=== PATIENT | female | born 1975 | race Caucasian/White ===

== ENCOUNTER → 2020-07-07 13:20 | Outpatient (CLI) | payer OTHER, SELFPAY ==
--- NOTE | ~2020-07-07 | MM_ITS ---
EXAMINATION: MM screening [facility] BI w ulysses HISTORY: Screening mammogram TECHNIQUE: Craniocaudal and mediolateral oblique 3-D tomosynthesis images were obtained and synthetic 2-D images were generated. CAD analysis was submitted and interpreted. COMPARISON: 07/23/2018 bilateral digital screening mammogram 04/30/2019 bilateral diagnostic digital mammogram and limited right breast ultrasound Outside mammogram images dated 07/10/2017 at 06/08/2016 BREAST PARENCHYMAL COMPOSITION: The breasts are heterogeneously dense, which may obscure small masses . FINDINGS: There is no evidence of suspicious mass, calcification, or architectural distortion to sugg est malignancy in either breast. There has been no suspicious interval change. IMPRESSION: 1. No mammographic evidence of malignancy. 2. Recommend routine screening mammography in one year. BI-RADS Category 1: Negative Reviewed, dictated and finalized at location A.
== END ==
PROVIDERS: Visit Provider Obstetrics & Gynecology
DX: Z12.31 Encounter for screening mammogram for malignant neoplasm of breast (principal)
CPT/HCPCS: 77063; 77067

== ENCOUNTER 2021-04-20 12:32 | Outpatient (CLI) | payer OTHER, SELFPAY ==
--- NOTE | ~2021-04-20 | MR_ITS ---
EXAMINATION: MR brain/brain stem wo/w con EXAM DATE: 04/20/2021 13:34 INDICATION: Migraine headache with aura. TECHNIQUE: Magnetic resonance imaging (MRI) of the brain/brain stem obtained without contrast. Sagit margarito T1, axial diffusion, gradient echo (T2*), T1, T2, FLAIR sequences obtained. Patient was then inj ected with 12 cc intravenous Multihance contrast. Axial and coronal postcontrast T1 weighted sequence s obtained. There is no prior study for comparison. FINDINGS: There are no areas of restricted diffusion to suggest acute infarction. There is no acute hemorrhage seen on the T2*, a hemosiderin sensitive sequence. No intraparenchymal brain mass. The ve ntricles are normal in size. There are no extra-axial collections. Flow voids are seen in the cereb ral arteries on the T2-weighted sequences consistent with their expected patency. The orbits are unr emarkable. Soft tissue is unremarkable. There are no areas of abnormal enhancement on the postcont rast images. IMPRESSION: 1. Normal brain MRI examination. Reviewed, dictated and finalized at location B.
[2021-04-20 13:11] LABS: Estimated Glomerular Filt Rate > 60
== END 2021-04-20 12:33 | disposition home or self-care (01) ==
PROVIDERS: PCP Internal Medicine; Visit Provider Internal Medicine
DX: G43.009 Migraine without aura, not intractable, without status migrainosus (principal)
CPT/HCPCS: 70553; A9577

== ENCOUNTER 2021-06-29 09:09 | Outpatient (CLI) | payer OTHER, SELFPAY ==
--- NOTE | ~2021-06-29 | XR_ITS ---
EXAMINATION: XR shoulder RT min 2V INDICATION: Right shoulder pain TECHNIQUE: Four views of the right shoulder are submitted. COMPARISON: 11/07/2016 FINDINGS: Normal alignment. No fracture. Glenohumeral and acromioclavicular joint spaces are normal. Soft tissues are unremarkable. IMPRESSION: 1. No acute osseous abnormality. Reviewed, dictated and finalized at location A.
--- NOTE | ~2021-06-29 | XR_ITS ---
EXAMINATION: XR hip RT min 2V DATE: 06/29/2021 09:42 INDICATION: Right hip pain TECHNIQUE: Two views of right hip were obtained. COMPARISON: 02/11/2019 FINDINGS: Bone alignment is normal. There is no fracture. The soft tissues are unremarkable. Phleboli ths are noted in the pelvis. IMPRESSION: 1. No acute osseous abnormality. Reviewed, dictated and finalized at location A.
== END 2021-06-29 09:10 | disposition home or self-care (01) ==
LOC: ANHIMG 09:14
PROVIDERS: PCP Internal Medicine; Visit Provider Internal Medicine
DX: M25.511 Pain in right shoulder (principal); M25.551 Pain in right hip
CPT/HCPCS: 73030; 73502

== ENCOUNTER → 2021-07-22 08:23 | Outpatient (CLI) | payer OTHER, SELFPAY ==
--- NOTE | ~2021-07-22 | MR_ITS ---
EXAMINATION: MR hip RT wo con DATE: 07/22/2021 09:29 INDICATION: Hip pain and popping TECHNIQUE: Magnetic resonance imaging (MRI) of the right hip was performed without intravenous contr ast. Sequences included full-field axial PD-weighted FS FSE and T1-weighted FSE, coronal of the pelvi s with PD-weighted FS FSE, T2-weighted FSE and T1-weighted FSE, small field of view of the right hip with axial PD-weighted FS FSE, sagittal PD-weighted FS FSE, coronal PD-weighted FS FSE and coronal T2 weighted FSE. Additional radial T1-weighted FGR oriented orthogonal to the acetabular rim were obt ained for evaluation of the labrum. COMPARISON: None FINDINGS: Bones/labrum/cartilage: Alignment is normal. No fracture, avascular necrosis or pathologic marrow replacing process. Labrum is normal. Mild right hip osteoarthritis with partial thickness cartilage loss with some scattered ch ondral surface irregularity. And tiny focus of underlying cortical irregularity. Fluid: Symmetric physiologic amount of fluid within both hip joints. Soft tissues: There is mild increased signal in the bilateral quadratus femoris muscle bellies localized to the reg ion between the ischial tuberosities and the lesser trochanters, left more prominent than right, whic h can be seen with ischiofemoral impingement. Otherwise normal and symmetric muscle bulk and signal i n the pelvis and visualized proximal thighs. Mild right gluteus minimus bursitis. Mild right gluteus minimus tendinopathy without discrete tear. The bilateral iliopsoas, remaining gluteal and proximal h amstring tendons are normal. The uterus is not identified and has likely been surgically resected. Limited evaluation of visceral organs of the pelvis is otherwise unremarkable. No pathologically en larged pelvic/inguinal lymphadenopathy. IMPRESSION: 1. Mild right hip osteoarthritis. 2. Mild right gluteus minimus bursitis with mild tendinopathy without discrete tear of the right glut eus minimus tendon. 3. Localized edema of the bilateral quadratus femoris muscles located between the ischial tuberosity and lesser trochanters consistent with ischiofemoral impingement. Reviewed, dictated and finalized at location A. IMPRESSION: 1. Mild right hip osteoarthritis. 2. Mild right gluteus minimus bursitis with mild tendinopathy without discrete tear of the right gluteus minimus tendon. 3. Localized edema of the bilateral quadratus femoris muscles located between t he ischial tuberosity and lesser trochanters consistent with ischiofemoral impi ngement.
== END ==
PROVIDERS: PCP Internal Medicine; Visit Provider Internal Medicine
DX: M16.11 Unilateral primary osteoarthritis, right hip (principal)
CPT/HCPCS: 73721

== ENCOUNTER → 2022-02-27 11:28 | Outpatient (CLI) | payer OTHER, SELFPAY ==
--- NOTE | ~2022-02-27 | MM_ITS ---
EXAMINATION: MM screening [facility] BI w ulysses HISTORY: Screening mammogram TECHNIQUE: Craniocaudal and mediolateral oblique 3-D tomosynthesis images were obtained and synthetic 2-D images were generated. CAD analysis was submitted and interpreted. COMPARISON: 07/07/2020, 04/20/2019, 07/23/2018 BREAST PARENCHYMAL COMPOSITION: The breasts are heterogeneously dense, which may obscure small masses . FINDINGS: There is no suspicious mass, calcification, or architectural distortion to suggest malignan cy in either breast. There has been no suspicious interval change. IMPRESSION: 1. No mammographic evidence of malignancy. 2. Recommend routine screening mammography in one year. BI-RADS Category 1: Negative Reviewed, dictated and finalized at location A.
== END ==
PROVIDERS: PCP Internal Medicine; Visit Provider Obstetrics & Gynecology
DX: Z12.31 Encounter for screening mammogram for malignant neoplasm of breast (principal)
CPT/HCPCS: 77063; 77067

== ENCOUNTER 2022-08-29 00:38 | Day surgery (SDC) | payer OTHER, SELFPAY ==
[2022-08-17 13:32] VITALS: BMI 22.9
[2022-08-29 06:55] VITALS: BP 97/47; PULSE 91; RESP 16; TEMP 36.2; O2SAT 100; BMI 22.1
[2022-08-29] MEDS: LACTATED RINGERS 1,000 ML 150 ML IV CONT (07:05)
--- NOTE | 2022-08-29 07:50 | PM.HPGS ---
History of Present Illness History of Present Illness Consent: Risks, benefits, and alternatives have been discussed and questions answered. Patient agrees to proceed with procedure. Chief complaint: family hx of celiac disease Narrative: Lina Nieto is a 47 year old female here for first screening colonoscopy, also family history of celiac disease Review of Systems Constitutional: Constitutional: Denies headache(s) and Denies weakness Eyes: Eyes: Denies blurry vision ENT: Reports Normal hearing present, Denies headache(s) and Denies neck pain Cardiovascular: Cardiovascular: Denies chest pain and Denies dyspnea Respiratory: Respiratory: Denies dyspnea Gastrointestinal: Gastrointestinal: Reports no additional gastrointestinal complaints Genitourinary: Genitourinary: Denies dysuria Musculoskeletal: Musculoskeletal: Denies neck pain Integumentary/Breasts: Skin/Breast: Denies dry skin Neurologic: Reports Normal hearing present, Denies headache(s) and Denies weakness Psychiatric: Psychiatric: Denies anxiety Endocrine: Endocrine: Denies change in body appearance Hematologic/Lymphatic: Hematologic/Lymphatic: Denies easy bleeding Allergic/Immunologic: Allergic/Immunologic: Denies urticaria PMFSH Past Medical History Medical History (Updated 07/12/22 @ 11:03 by Dax Orozco MD) Alternating constipation and diarrhea Asthma Autoimmune disorder Clotting disorder Colon cancer screening Family history of celiac disease History of stroke age 19 Hypertrophy of uterus Iron deficiency anemia Mononucleosis Seasonal allergies Stroke Thyroid disease Surgical History Surgical History (Updated 07/12/22 @ 11:03 by Dax Orozco MD) H/O: hysterectomy History of cholecystectomy Family History Family History Mother Family history of malignant neoplasm of uterus Brain cancer Father Acute myocardial infarction Social History Social History Smoking packs per day: 0.5 Smoking cigarettes per day: 10.0 Years smoked: 10 Smoking pack-years: 5.00 Smoking status: Former smoker Tobacco type: cigarettes Alcohol intake: current Drinks per week: 2 Substance use type: does not use and marijuana Other substance usage details: marijuana gummy before bed Living arrangements: with family Spiritual care concerns: No Meds Home Medications and Allergies Home Medications Medication Instructions Recorded Confirmed Type fexofenadine 60 mg tablet (Ernestina 60 mg PO Q12H 08/02/20 08/17/22 History Allergy) montelukast 10 mg tablet 10 mg PO DAILY 08/02/20 08/17/22 History aspirin 81 mg tablet,delayed 81 mg PO DAILY 08/17/21 08/17/22 History release (Adult Low Dose Aspirin) mycophenolate mofetil 500 mg 1,500 mg PO Q12H 08/17/21 08/17/22 History tablet (CellCept) escitalopram oxalate 10 mg tablet 10 mg PO DAILY 08/17/22 08/17/22 History levothyroxine 50 mcg tablet 50 mcg PO DAILY 08/17/22 08/17/22 History Allergies Allergy/AdvReac Type Severity Reaction Status Date / Time morphine Allergy Unknown itching Verified 08/29/22 06:54 Sulfa (Sulfonamide Allergy Unknown Rash Verified 08/29/22 06:54 Antibiotics) Vital Signs Vital Signs - 24 hr 08/29/22 06:55 Temperature 97.1 F L Pulse Rate 91 Respiratory Rate 16 Blood Pressure 97/47 L Pulse Oximetry 100 Oxygen Delivery Room Air Exam Const: General: comfortable and no acute distress HENMT: Face/Nose/Sinus: Normal nares present Eyes: General: appearance normal, both eyes and all related structures Neck: Neck: no JVD Resp: Auscultation: clear to auscultation bilaterally Cardio: Rate: regular rate Rhythm: regular rhythm GI: Inspection: non-distended GI Palp: Yes Soft to palpation Skin: General skin exam: normal color Neuro: General: gait normal Speech: marcell
--- NOTE | 2022-08-29 07:51 | WPDANESEPPF ---
Anes - Initial Pre Proc Eval Procedure: Operation Date: 08/29/22 08:00 Proposed Procedures p Esophagogastroduodenoscopy&Screen Colon - Dax Orozco MD Date/Time: 08/29/22 07:51 Surgeon: Dax Orozco MD Pre Op Diagnosis: family hx of celiac disease Patient Data Age: 47 Gender: F Height: 1.57 m Weight: 54.9 kg Last Vital Signs Temp 97.1 F L 08/29/22 06:55 Pulse 91 08/29/22 06:55 Resp 16 08/29/22 06:55 BP 97/47 L 08/29/22 06:55 Pulse Ox 100 08/29/22 06:55 O2 Del Method Room Air 08/29/22 06:55 Allergies Allergy/AdvReac Type Severity Reaction Status Date / Time morphine Allergy Unknown itching Verified 08/29/22 06:54 Sulfa (Sulfonamide Allergy Unknown Rash Verified 08/29/22 06:54 Antibiotics) Home Medications Medication Instructions Recorded Confirmed Type fexofenadine 60 mg tablet (Ernestina 60 mg PO Q12H 08/02/20 08/17/22 History Allergy) montelukast 10 mg tablet 10 mg PO DAILY 08/02/20 08/17/22 History aspirin 81 mg tablet,delayed 81 mg PO DAILY 08/17/21 08/17/22 History release (Adult Low Dose Aspirin) mycophenolate mofetil 500 mg 1,500 mg PO Q12H 08/17/21 08/17/22 History tablet (CellCept) escitalopram oxalate 10 mg tablet 10 mg PO DAILY 08/17/22 08/17/22 History levothyroxine 50 mcg tablet 50 mcg PO DAILY 08/17/22 08/17/22 History Patient hx anesthesia problems: none Family hx anesthesia problems: none Results Review: All pre-operative results and documents have been reviewed as part of the pre-operative evaluation. [facility] Past Medical History Medical History (Updated 07/12/22 @ 11:03 by Dax Orozco MD) Alternating constipation and diarrhea Asthma Autoimmune disorder Clotting disorder Colon cancer screening Family history of celiac disease History of stroke age 19 Hypertrophy of uterus Iron deficiency anemia Mononucleosis Seasonal allergies Stroke Thyroid disease Surgical History Surgical History (Updated 07/12/22 @ 11:03 by Dax Orozco MD) H/O: hysterectomy History of cholecystectomy Family History Family History Mother Family history of malignant neoplasm of uterus Brain cancer Father Acute myocardial infarction Social History Social History Smoking packs per day: 0.5 Smoking cigarettes per day: 10.0 Years smoked: 10 Smoking pack-years: 5.00 Smoking status: Former smoker Tobacco type: cigarettes Alcohol intake: current Drinks per week: 2 Substance use type: does not use and marijuana Other substance usage details: marijuana gummy before bed Living arrangements: with family Spiritual care concerns: No Anes - Eval Final PreProcedure Day of Procedure 08/29/22 07:51 Patient weight: normal Heart: regular rate and rhythm Lungs: clear to auscultation Airway: Mallampati scale class II Neurological: alert and oriented Last oral intake: >/= 8 hours ASA classification: III Emergent: no Anesthetic plan: proceed Anesthesia type and monitoring: general GIVS and standard monitoring Results Review: All pre-operative results and documents have been reviewed as part of the pre-operative evaluation. Informed Consent: The patient's anesthetic plan and its attendant risks and benefits were discussed with the patient/family/POA. Questions were solicited and answers provided to the satisfaction of the patient/family/POA.
--- NOTE | 2022-08-29 08:07 | SUR.OPER ---
EGD start 758 end 801, Colonoscopy start 805 end 814
[2022-08-29 08:19] VITALS: BP 104/69; PULSE 87; RESP 22; O2SAT 100
[2022-08-29 08:29] VITALS: BP 113/67; PULSE 89; RESP 20; O2SAT 100
[2022-08-29 08:39] VITALS: BP 110/71; PULSE 95; RESP 24; O2SAT 99
== END 2022-08-29 08:55 | disposition home or self-care (01) ==
PROVIDERS: PCP Internal Medicine; Visit Provider Internal Medicine Gastroenterology
PROC: 0DJ08ZZ Inspection of Upper Intestinal Tract, Via Natural or Artificial Opening Endoscopic (ICD-10-PCS; CPT 43235; principal; 2022-08-29 08:00)
DX: Z12.11 Encounter for screening for malignant neoplasm of colon (principal); K57.30 Diverticulosis of large intestine without perforation or abscess without bleeding; K31.9 Disease of stomach and duodenum, unspecified; Z83.79 Family history of other diseases of the digestive system; J45.909 Unspecified asthma, uncomplicated; M35.9 Systemic involvement of connective tissue, unspecified; D68.9 Coagulation defect, unspecified; D50.9 Iron deficiency anemia, unspecified; E07.9 Disorder of thyroid, unspecified; Z86.73 Personal history of transient ischemic attack (TIA), and cerebral infarction without residual deficits; Z87.891 Personal history of nicotine dependence; F12.90 Cannabis use, unspecified, uncomplicated; Z79.82 Long term (current) use of aspirin
CPT/HCPCS: 45378; 43239; 88305; J2704; J7120

== ENCOUNTER → 2023-05-09 12:21 | Outpatient (CLI) | payer BC, SELFPAY ==
--- NOTE | ~2023-05-09 | MM_ITS ---
EXAMINATION: MM screening [facility] BI w ulysses HISTORY: Screening mammogram TECHNIQUE: Craniocaudal and mediolateral oblique 3-D tomosynthesis images were obtained and synthetic 2-D images were generated. CAD analysis was submitted and interpreted. COMPARISON: 02/27/2022, 07/07/2020, 04/22/2019, 07/23/2018 BREAST PARENCHYMAL COMPOSITION: The breasts are heterogeneously dense, which may obscure small masses . FINDINGS: No suspicious mass, calcification, or architectural distortion are identified in either [place] ast to suggest malignancy. There has been no suspicious interval change. IMPRESSION: 1. No mammographic evidence of malignancy. 2. Recommend routine screening mammography in one year. BI-RADS Category 1: Negative Reviewed, dictated and finalized at location A.
== END ==
PROVIDERS: PCP Obstetrics & Gynecology; Visit Provider Obstetrics & Gynecology
DX: Z12.31 Encounter for screening mammogram for malignant neoplasm of breast (principal)
CPT/HCPCS: 77063; 77067

== ENCOUNTER 2023-10-24 08:15 | Outpatient (CLI) | payer BC, SELFPAY ==
--- NOTE | ~2023-10-24 | US_ITS ---
EXAMINATION: US abdomen complete DATE: 10/24/2023 08:57 INDICATION: Left upper quadrant abdominal pain. TECHNIQUE: Multiple grayscale and Doppler ultrasound images of the abdomen were obtained. COMPARISON: None FINDINGS: The visualized portions of the head, body, and tail of the pancreas are normal. Abdominal a ashley and inferior vena cava are normal. The liver is normal without focal lesion. No liver surface no dularity. There is normal flow in main portal vein. The gallbladder is absent. The common duct is nor mal and measures 5 mm. The kidneys are normal in size. The spleen is normal in size. IMPRESSION: 1. Normal complete abdomen ultrasound status post cholecystectomy. Reviewed, dictated and finalized at location A. K REPAIR SERVICE ESTIMATOR
== END 2023-10-24 08:16 ==
PROVIDERS: PCP Internal Medicine; Visit Provider Internal Medicine
DX: R10.12 Left upper quadrant pain (principal); Z90.49 Acquired absence of other specified parts of digestive tract
CPT/HCPCS: 76700

== ENCOUNTER 2024-09-21 12:18 | Outpatient (CLI) | payer OTHER, SELFPAY ==
--- NOTE | ~2024-09-21 | XR_ITS ---
AP and oblique views of the SI joints CLINICAL HISTORY: Rheumatoid arthritis FINDINGS: SI joints and hip joints are intact. No erosive or inflammatory arthropathy evident. No deg enerative change. Soft tissues are unremarkable. IMPRESSION: Unremarkable exam. Reviewed, dictated and finalized at location M. LYST SUPERVISOR IMPRESSION: Unremarkable exam.
--- NOTE | ~2024-09-21 | XR_ITS ---
Cervical Spine: AP, lateral, open-mouth views Clinical History: Rheumatoid arthritis Findings: The normal lordotic curve is maintained. The vertebral bodies and posterior elements appea r intact. The intervertebral disc spaces are well maintained. Mild facet joint degenerative changes are present. Pre-vertebral soft tissues are unremarkable. Impression: Mild facet joint degenerative changes. Reviewed, dictated and finalized at location . TRE PROFESSOR Impression: Mild facet joint degenerative changes.
--- NOTE | ~2024-09-21 | XR_ITS ---
EXAM: XR lumbar spine 2-3V DATE: 09/21/2024 13:27 HISTORY: Rheumatoid arthritis, unspecified . COMPARISON: None available. FINDINGS: 5 nonrib-bearing lumbar-type vertebral bodies. Pedicles intact. Upper lumbar straightening . 2 mm retrolisthesis at L4-5. Vertebral body heights preserved. Mild marginal osteophytosis at L2-3. Mild disc height loss at L4-5. Mild facet hypertrophy and sclerosis at L4-5 and L5-S1. No fracture o r dislocation. Cholecystectomy clips. IMPRESSION: Grade 1 retrolisthesis at L4-5. Mild multilevel mild degenerative disc disease and facet arthropathy. Reviewed, dictated and finalized at location K. ERTY CONSULTANT IMPRESSION: Grade 1 retrolisthesis at L4-5. Mild multilevel mild degenerative d isc disease and facet arthropathy.
--- NOTE | ~2024-09-21 | XR_ITS ---
EXAM: XR foot LT 2V, XR foot RT 2V DATE: 09/21/2024 13:27 HISTORY: Rheumatoid arthritis, unspecified . COMPARISON: None available. FINDINGS: Decreased mineralization. No fracture or dislocation. Mild bilateral hallux valgus. No lyt ic or blastic lesion. Mild degenerative change at the bilateral first MTP joints. Achilles and planta r enthesopathy. No erosion or periosteal change. Soft tissues within normal limits. IMPRESSION: Osteopenia. Mild bilateral hallux valgus and first MTP joint osteoarthritis. Reviewed, dictated and finalized at location K. S TENDER SMOKE SIGNAL IMPRESSION: Osteopenia. Mild bilateral hallux valgus and first MTP joint osteoa rthritis.
--- NOTE | ~2024-09-21 | XR_ITS ---
EXAM: XR hand LT 2V, XR hand RT 2V DATE: 09/21/2024 13:27 HISTORY: Rheumatoid arthritis, unspecified . COMPARISON: None available. FINDINGS: Normal mineralization. No fracture or dislocation. Mild boutonniere deformity in the right fifth and left second digits. Mild hyperextension at the bilateral third and fourth PIP joints. No l ytic or blastic lesion. Joint spaces are maintained. No erosion or periosteal change. Soft tissues wi thin normal limits. IMPRESSION: Mild flexion/extension deformities as described above.. Reviewed, dictated and finalized at location K. CULTURAL PURCHASING AGENT IMPRESSION: Mild flexion/extension deformities as described above..
[2024-09-23 14:23] LABS: Cyclic Citrullinated Peptide <16 UNITS
[2024-09-28 09:12] LABS: Reference Lab Test Name IgA; Reference Lab Test Result 359
== END 2024-09-21 12:19 | disposition home or self-care (01) ==
PROVIDERS: PCP Internal Medicine; Visit Provider Internal Medicine
DX: M20.021 Boutonniere deformity of right finger(s) (principal); M20.022 Boutonniere deformity of left finger(s); S63.633A Sprain of interphalangeal joint of left middle finger, initial encounter; S63.635A Sprain of interphalangeal joint of left ring finger, initial encounter; S63.634A Sprain of interphalangeal joint of right ring finger, initial encounter; S63.632A Sprain of interphalangeal joint of right middle finger, initial encounter; M85.871 Other specified disorders of bone density and structure, right ankle and foot; M20.11 Hallux valgus (acquired), right foot; M20.12 Hallux valgus (acquired), left foot; M19.071 Primary osteoarthritis, right ankle and foot; M19.072 Primary osteoarthritis, left ankle and foot; M06.9 Rheumatoid arthritis, unspecified
CPT/HCPCS: 36415; 72040; 72050; 72100; 72110; 72202; 73120; 73620; 82784; 86200

== ENCOUNTER 2024-12-15 09:24 | Outpatient (CLI) | payer OTHER, SELFPAY | END 2024-12-15 09:25 | disposition home or self-care (01) | LOC: ANHIMG 09:28 | PROVIDERS: PCP Internal Medicine; Visit Provider Internal Medicine | DX: M79.18 Myalgia, other site (principal); M54.6 Pain in thoracic spine | CPT/HCPCS: 72072 ==

== ENCOUNTER 2024-12-29 13:40 | Outpatient (CLI) | payer OTHER, SELFPAY ==
--- NOTE | ~2024-12-29 | MR_ITS ---
MRI of the thoracic spine Clinical History: Pain, myalgia Technique: Axial T2-weighted and gradient images, and sagittal T1-weighted, T2-weighted, and STIR jacinto ges were acquired. Findings: There is no fracture or subluxation of the thoracic spine. Vertebral bodies maintain normal height and alignment. No bone marrow signal abnormality seen. Intervertebral discs are relatively well preserved throughout the thoracic spine. No significant disc bulge or herniation seen. No spinal canal stenosis or cord compression identified. No definite neura l foraminal narrowing in the thoracic spine. No epidural mass or collection seen. No abnormal signal seen in the spinal cord. Paravertebral soft t issues are unremarkable. Impression: No significant abnormality seen. Reviewed, dictated and finalized at location . Impression: No significant abnormality seen.
--- NOTE | ~2024-12-29 | MR_ITS ---
MRI of the lumbar spine Clinical History: Pain, myalgia Technique: Axial T2-weighted images, and sagittal T1-weighted, T2-weighted, and T2 fat-sat images wer e acquired. Findings: There is no fracture or subluxation of the lumbar spine. Vertebral bodies maintain normal h eight and alignment. No bone marrow signal abnormality seen. At L1-L2, there is mild facet arthropathy. No disc bulge or herniation. No spinal canal stenosis or n eural foraminal narrowing. At L2-L3, there is minimal disc desiccation, without bulge or herniation. There is mild facet arthrop athy. No central canal stenosis or neural foraminal narrowing. L3-L4, there is no disc bulge or herniation. There is minimal facet arthropathy. No central canal avi nosis or neural foraminal narrowing. At L4-L5, there is minimal disc desiccation, without significant disc bulge. There is mild to moderat e facet arthropathy. No central canal stenosis. There is mild bilateral neural foraminal narrowing. At L5-S1, there is minimal disc desiccation minimal disc bulge. There is moderate facet arthropathy. No central canal stenosis or definite neural foraminal narrowing. Paravertebral soft tissues are unremarkable. Impression: Minimal degenerative change, as above. Reviewed, dictated and finalized at location . Impression: Minimal degenerative change, as above.
--- NOTE | ~2024-12-29 | MR_ITS ---
MRI of the cervical spine Clinical History: Pain, myalgia Technique: Axial T2-weighted and gradient images, and sagittal T1-weighted, T2-weighted, and STIR jacinto ges were acquired. Findings: There is no fracture or subluxation of the cervical spine. There is mild straightening of n ormal cervical lordosis. No suspicious bone marrow signal abnormality seen. At C2-C3, there is no disc bulge or herniation. No spinal canal stenosis, cord compression, or neural foraminal narrowing. At C3-C4, there is no disc bulge or herniation. No spinal canal stenosis, cord compression or neural foraminal narrowing. There is mild facet arthropathy bilaterally. At C4-C5, there is minimal disc ossify complex and mild facet arthropathy. No central canal stenosis, cord compression, or neural foraminal narrowing. At C5-C6, there is degenerative disc narrowing with mild disc osteophyte complex, most pronounced at the left paracentral to foraminal region. There is probable mild left neural foraminal narrowing. Rig ht neural foramen preserved. No canal stenosis or cord compression. At C6-C7, there is degenerative disc narrowing with mild disc ossify complex. There is bilateral neur al foraminal narrowing. No ngoc canal stenosis or cord compression. No abnormal signal seen in the spinal cord. Paravertebral soft tissues are unremarkable. Impression: Mild degenerative spondylosis, as above. Reviewed, dictated and finalized at [facility]. Impression: Mild degenerative spondylosis, as above.
== END 2024-12-29 13:41 | disposition home or self-care (01) ==
PROVIDERS: PCP Internal Medicine; Visit Provider Internal Medicine
DX: M79.7 Fibromyalgia (principal); M25.50 Pain in unspecified joint
CPT/HCPCS: 72141; 72146; 72148

== ENCOUNTER 2025-09-02 13:49 | Outpatient (CLI) | payer BC, SELFPAY ==
[2025-09-02 18:07] LABS: CRP 0.5 mg/dL (<1.0)
[2025-09-02 18:08] LABS: Hematocrit 37.7 % (37.0-47.0); Hemoglobin 12.4 g/dL (12.0-15.0); Immature Granulocyte Percent A 0.3 % (0-0.5); Lymphocytes Absolute Auto 1.43 K/mm3 (0.9-3.2); Mean Corpuscular HGB Conc 32.9 g/dl (32-36); Mean Corpuscular Hemoglobin 31.1 pg (26-34); Mean Corpuscular Volume 94.5 fl (80-100); Nucleated Red Blood Cells Absolute Auto 0.000 K/mm3 (0.0-0.012); Nucleated Red Blood Cells Perc 0.0 % (0.0-0.2); Platelet Count Result 282 k/mm3 (150-375); Red Blood Count 3.99 M/mm3 (4.2-5.4); White Blood Count 7.1 K/mm3 (4.5-10.0)
[2025-09-03 13:09] LABS: ANA by IFA Rfx Titer/Pattern Negative (.)
[2025-09-07 15:09] LABS: Anti-MPO Antibodies <0.2 units (0.0-0.9); Anti-PR3 Antibodies <0.2 units (0.0-0.9); Saccharomyces cerevisiae, IgA 29.9 Units (0.0-24.9); Saccharomyces cerevisiae, IgG 59.4 Units (0.0-24.9)
== END 2025-09-02 13:50 | disposition home or self-care (01) ==
LOC: ANHGOSHLAB 13:50
PROVIDERS: PCP Internal Medicine; Visit Provider Otolaryngology
DX: J34.0 Abscess, furuncle and carbuncle of nose (principal)
CPT/HCPCS: 36415; 85025; 85652; 86037; 86038; 86140; 86225; 86364; 86430; 86671